=== PATIENT | female | born 1945 | race Caucasian/White ===

== ENCOUNTER 2017-09-09 06:18 | Emergency (ER) | payer MEDICARE ==
--- NOTE | 2017-09-09 06:55 | ED Physician Documentation ---
Upper Extremity Problem - HISTORIAN Historian: patient - HPI Stated Complaint: left arm pain Chief Complaint: Upper Extremity Problem Additional Information: She has pain in her Left tricep that she awoke with this morning, denies trauma to area, denies overuse. she is not from here but is traveling, it hurts more when she lifts and flexs her elbow, stretching her triceps. she has increased pain when squeezing her tricep. but no pain when palpating and pushing against the bicep. she denies having any concerns as to what it might be. Location: L arm Onset: hours Timing: still present Duration: constant, sudden-Onset Recent Injury: No Severity: mild Associated Symptoms: denies: fever, chills, shortness of breath, difficulty breathing, chest pain, chest discomfort, nausea, vomiting, neck pain, back pain , jaw pain Exacerbated By: change in position Relieved By: rest Quality: pain, tenderness. denies: swelling, numbness, tingling Further Comments: no - ROS CONST: no problems EYES/ENT: none CVS/RESP: none GI/: none MS/SKIN/LYMPH: denies: calf pain, joint pain, rash, swollen glands, leg pain NEURO/PSYCH: denies: headache, dizziness - PAST HX Past History: none Other History: hypertension Surgeries/Procedures: none Allergies/Adverse Reactions: Allergies Allergy/AdvReac Type Severity Reaction Status Date / Time No Known Allergies Allergy Verified 09/09/17 06:30 Home Medications: Ambulatory Orders Medication Instructions Recorded Pravastatin Sodium [Pravachol] 20 mg PO QDAY 09/09/17 - SOCIAL HX Smoking History: non-smoker Alcohol Use: none Drug Use: none - FAMILY HX Family History: none - VITAL SIGNS Vital Signs: Vital Signs Temp Pulse Resp BP Pulse Ox 81 16 158/63 96 09/09/17 06:25 09/09/17 06:25 09/09/17 06:25 09/09/17 06:25 - REVIEWED ASSESSMENTS Nursing Assessment Reviewed: Yes Vitals Reviewed: Yes Progress - Progress Progress: she denies overuse or trauma, buit this is seems obviously a musculoskeletal problem. I explained about inflammation from a previous injury several days ago , which may be possible. Upper Extremity Problem - EXAM General Appearance: no acute distress, alert Skin: warm/dry, normal color Shoulder Exam: normal inspection, non-tender Elbow/Forearm Exam: no evidence of injury, soft tissue tenderness (increased symptoms when squeezing tricep, no symptoms when squeezing bicep. increased symptom when raising and flexinf elbow, decreased symptom when relaxing and straightening elbow.) Wrist Exam: normal inspection Hand Exam: normal inspection Neuro/Tendon: normal sensation, normal motor functions, normal tendon functions , responds to pain, no evidence tendon injury. No: motor deficit, sensory deficit EENT: ENT inspection normal CVS: reg rate & rhythm Vascular: no vascular compromise Peripheral: sensation nml, motor nml Central: oriented X3 Respiratory: no resp. distress Abdomen: non-tender Discharge Clincal Impression: Musculoskeletal arm pain Qualifiers: Laterality: left Qualified Code(s): M79.602 - Pain in left arm Strain of left triceps muscle Qualifiers: Encounter type: initial encounter Qualified Code(s): S46.312A - Strain of muscle, fascia and tendon of triceps, left arm, initial encounter Condition: Good Disposition: 01 HOME, SELF-CARE Decision to Admit: NO Date of Decison to Admit: 09/09/17 Decision Time: 07:08
[2017-09-09 07:22] VITALS: BP 129/62
== END 2017-09-09 07:12 | disposition home or self-care (01) ==
LOC: ED 06:18
DX: S46.312A Strain of muscle, fascia and tendon of triceps, left arm, initial encounter (principal); X58.XXXA Exposure to other specified factors, initial encounter
CPT/HCPCS: 99282; 99283